=== PATIENT | female | born 1975 | race Caucasian/White ===

== ENCOUNTER → 2024-04-29 13:07 | Outpatient (REF) | payer OTHER, SELFPAY | LOC: HWWDC 13:07 | PROVIDERS: ATTENDING PHYSICIAN Nurse Practitioner Family | DX: Z12.31 Encounter for screening mammogram for malignant neoplasm of breast (principal) | CPT/HCPCS: 77063; 77067 ==

== ENCOUNTER 2025-05-31 08:37 | Emergency (ER) | payer OTHER, SELFPAY ==
[2025-05-31 08:42] VITALS: BP 140/102
--- NOTE | 2025-05-31 09:07 | ED.GENMED ---
History of Present Illness
General
Chief Complaint: Chest Pain
Time Seen by Provider: 05/31/25 08:47
History of Present Illness
History of Present Illness:
49-year-old female with history of asthma and fibromyalgia presenting to the emergency department for chest pain. Patient notes for the past 2 days she has been generally feeling unwell with subjective fevers and chills and sore throat. She notes
that she woke up this morning with left-sided chest pain and felt that it was going to her arm and her neck. Denies personal history of cardiac issues. Does note family history of cardiac disease. Denies any difficulty breathing. Reports that
she feels like her heart rate has been racing. Denies any history of PE, recent surgery, recent travel, exogenous estrogen. Denies abdominal pain or vomiting. Denies any known sick contacts. Denies cough. Denies additional acute medical
complaints
Past History
Past History
ED Past Medical History: Other (Migraine headaches asthma, celiac disease, anemia, Stacia-en-Y bypass, breast reduction, nasal surgery, , tubal ligation, fractured sacrum)
ED Past Surgical History: ( �2, BTL) and Other (Gastric bypass surgery 2013)
Social History
Tobacco: Non-smoker
Alcohol: Occasional
Personal:
Family History
Family History: Other (Mother with coronary disease. Brother with coronary disease and diabetes)
Phy Exam
Physical Exam
Physical Exam:
General: Well-appearing, no clinical signs of dehydration, nontoxic and in no acute distress
HEENT: protecting airway
Neck: appears supple
CV: Normal heart rate, regular rhythm
Resp: No accessory muscle use, no increased work of breathing, lungs clear to auscultation bilaterally
Abd: Soft and non-distended, no tenderness to palpation
Extremities: No deformities, no swelling, no erythema
Neuro: alert, no focal neurologic deficit
: deferred
Rectal: deferred
Psych: Normal affect
Skin: Intact
Scores
Heart Score for Chest Pain Patients
STEMI patient?: No
History: Slightly or Non-Suspicious
ECG: Normal
Age: >45 - <65 years
Risk Factors: 1 or 2 Risk Factors
Troponin: </= Normal Limit
Heart Score for Chest Pain Patients: 2
Heart Score Risk: 2.5% MACE over next 6 weeks
Course
Orders/Labs/Results
Orders:
Orders
05/31/25 08:38
Electrocardiogram (*1) Urgent
Reason for Study: Chest Pain
EKG- Treatment ONCE
05/31/25 09:00
CR Chest - 2 Views Urgent
Comment:
Reason For Exam: flu like symptoms
05/31/25 09:01
0.9% Sodium Chloride 1000 ml [Nss] 1,000 ml IV BOLUS
05/31/25 09:02
Ketorolac [Toradol] 15 mg IV NOW STA
05/31/25 09:19
COVID-19 Antigen Urgent
Source: Nasal Swab
Complete Blood Count/With Diff Urgent
Comprehensive Metabolic Panel Urgent
Troponin I Urgent
Influenza A+B Rapid Molecular Urgent
CHEIKH Source: Nasal Swab
Specimen Description:
Abnormal Lab Results
05/31/25
09:19
MPV 10.9 H fL
(7.4-10.4)
Chloride 108 H mmol/L
(98-107)
05/31/25 09:19
05/31/25 09:19
Vital Signs
Initial and Last Documented VS:
Initial Vital Signs
Temp Pulse Resp BP Pulse Ox
97.9 F 88 20 140/102 99
05/31/25 08:42 05/31/25 08:42 05/31/25 08:42 05/31/25 08:42 05/31/25 08:42
Last Documented Vital Signs
Temp Pulse Resp BP Pulse Ox
97.9 F 78 13 121/84 90
05/31/25 08:42 05/31/25 09:15 05/31/25 09:15 05/31/25 09:08 05/31/25 09:15
MDM/Problems Addressed
MDM/Problems Addressed:
49-year-old female with history of fibromyalgia, asthma presenting to the emergency department for chest pain. Vital signs are significant for mild hypertension.
On exam patient is resting comfortably, no acute distress or discomfort. Unremarkable cardiac and pulmonary exam. EKG obtained on arrival, nonischemic without change from prior. Lower suspicion at this time for ACS with minimal cardiac risk
factors, reassuring EKG. Will screen further with troponin. Lower suspicion for PE, PERC negative. Suspect possible viral URI. COVID or flu is a consideration, will send swabs. Will obtain chest x-ray imaging. Will treat with IV fluids and
Toradol and reassess for improvement.
10:35 - Patient's labs are unremarkable. Chest x-ray without acute cardiopulmonary disease. COVID and flu are negative. On reassessment patient remained stable. Blood pressure has normalized. Feel stable for discharge with outpatient follow-up.
Ultimately suspect viral syndrome. Advised close outpatient PCP follow-up. Return precautions discussed and patient verbalized understanding
*Pulse Oximetry
SaO2: 99
Oxygen Mode of Delivery: Room air
Patient hypoxic: no
*EKG
Interpreted by ED Provider?: Yes
EKG Intrepretation Date: 05/31/25
EKG Intrepretation Time: 09:23
Interpretation: normal
Comparison EKG: no changes
Heart Rate: 78
Rate: normal
Rhythm: sinus
Gideon: normal axis
Interval: normal interval
QRS Pattern: normal QRS
Ischemia: no ischemia
*Critical Care Note
Total Time (30-74mins, 75-104mins- exclusive of procedures): Not Applicable
ED Attending Note
-
Portions of this chart may have been created with voice recognition software.� Occasional wrong word or��sound alike� substitutions may have occurred due to the inherent limitations of voice recognition software.
Discharge Plan
Departure
Patient with high blood pressure during this ER visit?: Yes
Condition: Good
Discharge Problem:
Chest wall pain
Instructions: Chest pain (DC), Upper respiratory infection in adults - ED (DC), BLOOD PRESSURE
Prescriptions:
No Action
calcium carbonate 500 MG tablet
500 mg PO DAILY
albuterol sulfate 1 PUFF HFA aerosol inhaler
1 puff inhalation R Q4HPRN PRN (Reason: sob/wheeze)
budesonide-formoterol [Symbicort] 1 PUFF HFA aerosol inhaler
2 puff inhalation R BID
cetirizine 10 MG tablet
10 mg PO QPM
cholecalciferol (vitamin D3) 1,000 UNITS tablet
17,000 units PO .WEEKLY
cyclobenzaprine 10 MG tablet
10 mg PO TIDPRN PRN (Reason: pain)
Patient Comments:
pain
topiramate 100 MG tablet
200 mg PO DAILY
ubrogepant [Ubrelvy] 100 MG tablet
100 mg PO PRN PRN (Reason: migraine)
Vitamin B-12
1 unit SC .MONTHLY
Melatonin Tab
20 mg PO HS
Referrals:
Kaylene Esteban CRNP [Family Provider, Family Practice]
Activity Restrictions/Additional Instructions:
You were seen in the emergency department for an episode of chest pain
You were found to have reassuring vital signs, laboratory analysis, EKG, chest x-ray
Please follow-up closely with your primary care physician.
Return to the emergency department for any worsening of your symptoms, or any development of chest pain, difficulty breathing, abdominal pain with persistent vomiting and inability to tolerate food or liquid by mouth (concern for dehydration),
weakness, headache or confusion, fever greater than 100.4, or any additional symptoms that are concerning to you.
Thank you for choosing [facility].
Interventions
Interventions:
*Risk Screen - Suicide Last Done: 05/31/25 08:42
*General Assessment Last Done: 05/31/25 09:25
*Neglect/Abuse Screening Last Done: 05/31/25 08:42
*ED- Fall Risk Assessment Last Done: 05/31/25 09:25
*ED COVID-19 Vaccine History Last Done: 05/31/25 09:25
*ED Influenza Vaccine History Last Done: 05/31/25 09:25
ED- Cardiac Assessment Last Done: 05/31/25 09:25
Discharge Date and Time
Print Language: FAROESE
[2025-05-31 09:08] VITALS: BP 121/84
[2025-05-31] MEDS: NSS 1000 IV (09:21)
[2025-05-31] MEDS: TORADOL 15 MG IV (09:21)
[2025-05-31 09:35] LABS: Hematocrit 37.5 % (37.0-47.0); Hemoglobin 12.5 g/dL (12.0-16.0); Mean Corp Hgb Conc. 33.3 g/dL (33.0-37.0); Mean Corpuscular Volume 88.9 fL (81.0-99.0); Nucleated Red Blood Cells % 0 %; Platelet Count 244 10^3/uL (130-400); Red Cell Dist. Width 14.0 % (11.5-14.5)
[2025-05-31 09:49] LABS: ALT (SGPT) 29 U/L (0-35); AST (SGOT) 22 U/L (14-36); Albumin 3.9 g/dl (3.5-5.0); Alkaline Phosphatase 88 U/L (38-126); Blood Urea Nitrogen 11 mg/dl (7-17); Calcium 8.8 mg/dl (8.4-10.2); Carbon Dioxide 27 mmol/L (22-30); Chloride 108 mmol/L (98-107); Glucose 82 mg/dl (70-99); Potassium 3.8 mmol/L (3.5-5.1); Sodium 139 mmol/L (135-145); Total Protein 7.0 g/dl (6.3-8.2); eGFR > 60.00
[2025-05-31 10:02] LABS: Troponin I < 0.012 ng/ml
[2025-05-31 10:26] LABS: COVID-19 Antigen Negative (Negative)
[2025-05-31 11:00] VITALS: BP 129/96
[2025-05-31 11:05] VITALS: BP 132/91
== END 2025-05-31 11:12 | disposition home or self-care (01) ==
LOC: EMR 08:37
PROVIDERS: EMERGENCY PHYSICIAN Student in an Organized Health Care Education/Training Program; FAMILY PHYSICIAN Nurse Practitioner Family
DX: R07.89 Other chest pain (principal); Z11.52 Encounter for screening for COVID-19; J45.909 Unspecified asthma, uncomplicated; M79.7 Fibromyalgia; Z98.84 Bariatric surgery status; Z82.49 Family history of ischemic heart disease and other diseases of the circulatory system
CPT/HCPCS: 96374; 99285; 71046; 80053; 84484; 85025; 87502; 87811; 93005